=== PATIENT | male | born 1990 | race Caucasian/White ===

== ENCOUNTER 2017-02-16 11:25 | Emergency (ER) | payer SELFPAY ==
[~2017-02-16] VITALS: Ht 203.2 cm; Wt 90.0 kg
[~2017-02-16 11:25] MED LIST: DICL-86 PO; TRAM50 PO; Z.0.NO CURRENT MEDS
[2017-02-16 11:27] VITALS: BP 136/84; PULSE 92; RESP 14; TEMP 98.7; O2SAT 99
[2017-02-16 12:01] VITALS: BP 140/85; PULSE 115; RESP 18; O2SAT 100
--- NOTE | 2017-02-16 12:26 | PD ---
HPI Chief Complaint: Medical Clearance Time Seen by Provider: 12:00 Travel History International Travel<30 days: No Contact w/Intl Traveler<30days: No Traveled to known affect area: No History of Present Illness HPI 26-year-old male presents to the emergency department with his mother and father for psychiatric evaluation. Patient's mother speaks outside the room. She states she is extremely concerned for her son. She states he isn't preoccupies relation for the first week in his delusional. She states that he disappeared last night without his shoes. She states that he is hanging out with an individual who is putting these thoughts in his head. Patient states that "my father spoke to me and I am on a journey". When asked what this journey is, he will not elaborate. When asked where he went last night, he states that "I am on journey for God". Patient will not allow any labs be drawn stating "my body has to stay pure". Patient denies any psychiatric history. He states he smokes marijuana, but denies any other illicit drug use. He denies any suicidal or homicidal ideation. His mother is crying and asking for and to be Agu[facility] acted as he is not acting normal and is delusional. PFSH Past Medical History Diminished Hearing: No Musculoskeletal: Yes (PREVIOUSLY BROKEN RIGHT WRIST AND HAND) Immunizations Current: Yes Tetanus Vaccination: Unknown Influenza Vaccination: No Past Surgical History Joint Replacement: Yes (R knee surgery ) Social History Alcohol Use: No Tobacco Use: No Substance Use: Yes (marijuana - last use this am ) Allergies-Medications (Allergen,Severity, Reaction): Coded Allergies: penicillin G (Unverified Allergy, Severe, RASH, 02/16/17) amoxicillin (Unverified Allergy, Intermediate, RASH, 02/16/17) Reported Meds & Prescriptions Reported Meds & Active Scripts Active No Active Prescriptions or Reported Medications Review of Systems Except as stated in HPI: all other systems reviewed are Neg Physical Exam Narrative GENERAL: Well-nourished, well-developed male patient, ambulatory. Afebrile. Patient is alert and oriented to person, place, time. SKIN: Focused skin assessment warm/dry. HEAD: Normocephalic. Atraumatic. EYES: No scleral icterus. No injection or drainage. NECK: Supple, trachea midline. No JVD or lymphadenopathy. CARDIOVASCULAR: Regular rate and rhythm without murmurs, gallops, or rubs. RESPIRATORY: Breath sounds equal bilaterally. No accessory muscle use. Lungs sounds are clear to auscultation. GASTROINTESTINAL: Abdomen soft, non-tender, nondistended. MUSCULOSKELETAL: No cyanosis, or edema. PSYCHIATRIC: Patient appears delusional. No hallucinations. Data Data Last Documented VS Vital Signs Date Time Temp Pulse Resp B/P (MAP) Pulse Ox O2 Delivery O2 Flow Rate FiO2 02/16/17 13:20 91 20 133/91 (105) 97 Room Air 02/16/17 11:27 98.7 Orders Orders Psych Screen (02/16/17 12:16) Drug Screen, Random Urine (02/16/17 12:16) Lorazepam Inj (Ativan Inj) (02/16/17 12:50) Haloperidol Inj (Haldol Inj) (02/16/17 12:50) Restraints Violent (02/16/17 13:07) Complete Blood Count With Diff (02/16/17 13:07) Comprehensive Metabolic Panel (02/16/17 13:07) Alcohol (Ethanol) (02/16/17 13:07) Haloperidol Inj (Haldol Inj) (02/16/17 13:30) Lorazepam Inj (Ativan Inj) (02/16/17 13:30) Diet Regular Basic (02/16/17 Dinner) Labs Laboratory Tests Test 02/16/17 15:20 Urine Opiates Screen NEG Urine Barbiturates Screen NEG Urine Amphetamines Screen NEG Urine Benzodiazepines Screen NEG Urine Cocaine Screen NEG Urine Cannabinoids Screen POS MDM Medical Decision Making Medical Screen Exam Complete: Yes Emergency Medical Condition: Yes Medical Record Reviewed: Yes Differential Diagnosis Schizophrenia versus depression versus psychosis versus substance abuse Narrative Course 26-year-old male presents to the emergency department brought in by his parents stating that he is on a [place], sent by car. He appears preoccupied with gnosticism. The patient refuses any lab work stating that his body needs to stay.. His mother is extremely concerned about him and is tearful. She states that this is not her son and that he is delusional and psychotic. She is begging for the patient to be placed under Aguilar act for psychiatric evaluation. The patient states that he does not want to stay to be seen by psychiatrist. The patient does appear delusional when I'm speaking to him. He will not stay voluntarily to be seen by the psychiatrist. His parents are extremely concerned for his safety. Since the patient will not voluntarily stay, the patient will be placed under [facility]ilar act to see a psychiatrist as his parents are extremely concerned for his safety. At the worst, the patient be wasting an afternoon here, but if he is as delusional and psychotic as his parents state, there is danger for the patient's safety. The patient refuses to have any labs drawn for a urine sample to be given. He does answer all questions appropriately and has no medical complaints at this time. The patient is aware that I cannot rule out any acute abnormality or medical condition without lab work. Patient became aggressive and uncooperative. He was placed in restraints. [id number] exam completed at 1307. Patient demonstrates the need for violent restraints, demonstrating a risk of harming himself and others. Restraints are noted in place. Distal extremities remain neurovascularly intact. [facility] was accepted to [facility] and will be transferred there. Diagnosis Primary Impression: Psychosis Qualified Codes: F29 - Unspecified psychosis not due to a substance or known physiological condition Scripts No Active Prescriptions or Reported Meds Disposition: 65 DISC TO PSYCH CARE FACILITY Condition: Stable MargaritoJazmyn rosales AKI Feb 16, 2017 12:26
[2017-02-16] MEDS ORDERED: HALOPERIDOL LACTATE 5 MG/ML AMP ONE (12:50)
[2017-02-16] MEDS ORDERED: LORazepam 2 MG/ML VIAL ONE (12:50)
[2017-02-16 13:20] VITALS: BP 133/91; PULSE 91; RESP 20; O2SAT 97
[2017-02-16] MEDS ORDERED: LORazepam 2 MG/ML VIAL IV ONE (13:30)
[2017-02-16] MEDS ORDERED: HALOPERIDOL LACTATE 5 MG/ML AMP IM ONE (13:30)
== END 2017-02-16 20:45 ==
LOC: NEPJ 11:25
DX: F29 Unspecified psychosis not due to a substance or known physiological condition (principal)
CPT/HCPCS: 80307; 96372; 96374; 99285; J1630; J2060